=== PATIENT | male | born 1980 | race Hispanic/Latino ===

== ENCOUNTER 2019-08-30 | Emergency (ER) | payer OTHER, BC ==
[~2019-08-30] MED LIST: BUSPAR10 MG PO; CIPROFLOXACN500 MG PO; CLARITIN10 M1 PO; METFORMIN500 MG PO; PRILOSEC40 MG PO; PROPRANOLOL HCL20 MG PO; PROPRANOLOL HCL40 MG PO; ULTRAM50 MG OR; VENTOLIN HFA IN; ZOFRAN ODT4 MG PO
[2019-08-30] MEDS ORDERED: LEVOTHYROXIN75 MCG PO (09:26)
[2019-08-30] MEDS ORDERED: ZYRTEC10 MG PO (09:26)
[2019-08-30] MEDS ORDERED: VENTOLIN HFA IN (09:27)
[2019-08-30] MEDS ORDERED: FLEXERIL PO (10:40)
== END 2019-08-30 10:52 | disposition home or self-care (01) | DRG 556 ==
DX: M62.838 Other muscle spasm (principal); R51 Headache; V53.5XXA Driver of pick-up truck or van injured in collision with car, pick-up truck or van in traffic accident, initial encounter